=== PATIENT | male | born 1960 | race Caucasian/White ===

== ENCOUNTER 2019-04-07 10:48 | Day surgery (SDC) | payer BC ==
[2019-04-07] VITALS (7 sets, daily range): BP systolic 97–122; BP diastolic 64–80
[~2019-04-07] VITALS: Ht 175.3 cm; Wt 66.8 kg
[~2019-04-07 10:48] MED LIST: IBUP-2417 PO; cefazolin/dext.iso 2gm/100ml 100 ML IV ONE; famotidine 10mg tablet PO ONE; ringers solution, lacted 1,000 ML IV SCH
[2019-04-07] MEDS ORDERED: midazolam 2 mg/2 ml injection ONE (11:04)
[2019-04-07] MEDS ORDERED: BUPIVAcaine/PF 2.5 mg/ml (0.25%) 30ml vial ONE (11:05)
[2019-04-07] MEDS ORDERED: cloNIDine hcl/PF 100mcg/ml inj ONE (11:09)
[2019-04-07] MEDS ORDERED: ringers solution, lacted 1,000 ML IV SCH ×2 (11:23→12:41)
[2019-04-07] MEDS ORDERED: morphine 4 MG/ML inj SYRINge IV PRN ×4 (11:25→12:45)
[2019-04-07] MEDS ORDERED: proCHLORperazine 10 MG/2 ml inj IV PRN ×2 (11:25→12:45)
[2019-04-07] MEDS ORDERED: meperidine/PF 25mg/ml syringe IV PRN ×6 (11:25→12:45)
[2019-04-07] MEDS ORDERED: ondansetron/PF 4mg/2ml inj IV PRN ×2 (11:25→12:45)
[2019-04-07] MEDS ORDERED: sevoflurane 250ml liquid IH ONE (11:52)
[2019-04-07 12:07] LABS: BASOPHILS % (AUTO) 0.7 % (0-1); EOSINOPHILS # (AUTO) 0.1 X10'3 (0-0.9); EOSINOPHILS % (AUTO) 0.9 % (0-6); LYMPHOCYTES # (AUTO) 1.6 X10'3 (1.1-4.8); LYMPHOCYTES % (AUTO) 24.3 % (21-51); MEAN CORPUSCULAR HEMOGLOBIN 30.5 PG (27.0-31.0); MEAN CORPUSCULAR HGB CONC 34.1 g/dL (33.0-36.5); MEAN CORPUSCULAR VOLUME 89.5 FL (78-98); MEAN PLATELET VOLUME 8.2 FL (7.4-10.4); MONOCYTES # (AUTO) 0.6 X10'3 (0-0.9); MONOCYTES % (AUTO) 8.3 % (2-12); NEUTROPHILS # (AUTO) 4.5 X10'3 (1.8-7.7); NEUTROPHILS % (AUTO) 65.8 % (42-75); PRE OP HEMATOCRIT 44.6 % (42.0-52.0); PRE OP HEMOGLOBIN 15.2 g/dL (14.0-17.9); PRE OP PLATELET COUNT 282 X10'3 (140-440); RED BLOOD COUNT 4.98 X10'6 (4.70-6.10); RED CELL DISTRIBUTION WIDTH 13.3 % (11.5-14.5)
[2019-04-07 12:14] LABS: ALBUMIN 3.7 G/DL (3.4-5.0); ALBUMIN/GLOBULIN RATIO 1.2 (1.1-1.5); ALKALINE PHOSPHATASE 71 IU/L (46-116); BLOOD UREA NITROGEN 20 MG/DL (7-18); BUN/CREATININE RATIO 24.7 (5.4-32.0); CALCIUM 8.8 MG/DL (8.5-10.1); CHLORIDE 108 MMOL/L (99-107); CREATININE 0.81 MG/DL (0.60-1.10); PRE OP ALT 28 U/L (30-65); PRE OP ANION GAP 5 (8-16); PRE OP AST 16 U/L (10-37); PRE OP BILIRUB, TOTAL 0.6 MG/DL (0.0-1.0); PRE OP GLUCOSE 84 MG/DL (70-104); PRE OP POTASSIUM 3.8 MMOL/L (3.4-5.1); PRE OP SODIUM 142 MMOL/L (135-145); TOTAL PROTEIN 6.7 G/DL (6.4-8.2); eGFR > 90 ML/MIN
[2019-04-07] MEDS ORDERED: fentaNYL/PF 50MCG/1 ML 2ML syringe ONE (12:22)
[2019-04-07] MEDS ORDERED: propofol inj 20 ML IV ONE (12:23)
[2019-04-07] MEDS ORDERED: ondansetron/PF 4mg/2ml inj ONE (12:23)
[2019-04-07] MEDS ORDERED: LIDOcaine 2% (20mg/ml) 5ml vial ONE (12:23)
[2019-04-07] MEDS ORDERED: dexamethasone sod phosphate 4mg/ml inj. ONE (12:23)
[2019-04-07] MEDS ORDERED: ketorolac trometh. 30mg/ml inj. ONE (12:23)
[2019-04-07] MEDS ORDERED: ROPIVAcaine 0.5% (5mg/ml) 30ml vial ONE (12:23)
[2019-04-07] MEDS ORDERED: acetaminophen 1,000mg/100ml IV 100 ML IV PRN (12:45)
--- NOTE | 2019-04-07 13:25 | NUR ---
Received from OR via [facility], accompanied by Anesthesiologist DIRK and report given by Anesthesiolgist. PATIENT WITH LEFT WRIST SPLINT PRESENT. NO DRAINGE PRESENT- ELEVATED. CDI + CAP REFILL AND FINGERS ARE PWD. 10L MASK WITH 100% SATURATIONS. 20G PIV IN RIGHT UE RUNNING LR AT 100. VSS Addendum: 04/07/19 at 1336 by Jay Meza RN, RN Amended: Links added.
--- NOTE | 2019-04-07 14:15 | NUR ---
ALL DC CRITERIA HAS BEEN MET. IV TAKEN OUT WITHOUT COMPLICATIONS. ALL INSTRUCTIONS COVERED AND ALL QUESTIONS ANSWERED. DRESSINGS CDI. OUT VIA WHEELCHAIR TO PERSONAL VEHICLE WHERE PATIENT WAS SECURED IN AND DRIVEN HOME BY FAMILY. PRESENT TO TAKE PATIENT HOME. ALL DC INSTRUCTIONS COVERED. Addendum: 04/07/19 at 1432 by Jay Meza RN, RN Amended: Links added.
== END 2019-04-07 14:15 | disposition home or self-care (01) ==
LOC: PAS 10:48
PROVIDERS: ATTEND Orthopaedic Surgery Hand Surgery
DX: M19.032 Primary osteoarthritis, left wrist (principal); E78.00 Pure hypercholesterolemia, unspecified; G89.18 Other acute postprocedural pain; Z98.890 Other specified postprocedural states; Z79.899 Other long term (current) drug therapy
CPT/HCPCS: 25820; 36415; 64417; 80053; 85025; A6402; C1713; J0735; J1100; J1885; J2001; J2250; J2405; J2704; J3010; J3490; J7120; A4215; A4618; A6449; A7000; J2795

== ENCOUNTER 2021-09-26 05:37 | Day surgery (SDC) | payer BC ==
[2021-09-16 16:01] LABS: BASOPHILS # (AUTO) 0.1 X10'3 (0-0.2); BASOPHILS % (AUTO) 0.9 % (0-1); EOSINOPHILS # (AUTO) 0.1 X10'3 (0-0.9); LYMPHOCYTES # (AUTO) 1.3 X10'3 (1.1-4.8); LYMPHOCYTES % (AUTO) 17.1 % (21-51); MEAN CORPUSCULAR HEMOGLOBIN 28.9 PG (27.0-31.0); MEAN CORPUSCULAR HGB CONC 32.7 g/dL (33.0-36.5); MEAN CORPUSCULAR VOLUME 88.2 FL (78-98); MEAN PLATELET VOLUME 7.1 FL (7.4-10.4); MONOCYTES # (AUTO) 0.6 X10'3 (0-0.9); MONOCYTES % (AUTO) 8.4 % (2-12); NEUTROPHILS # (AUTO) 5.5 X10'3 (1.8-7.7); NEUTROPHILS % (AUTO) 72.6 % (42-75); PRE OP HEMATOCRIT 39.1 % (42.0-52.0); PRE OP HEMOGLOBIN 12.8 g/dL (14.0-17.9); PRE OP PLATELET COUNT 335 X10'3 (140-440); RED BLOOD COUNT 4.44 X10'6 (4.70-6.10); RED CELL DISTRIBUTION WIDTH 13.9 % (11.5-14.5)
[2021-09-16 16:16] LABS: ALBUMIN 3.4 G/DL (3.4-5.0); ALBUMIN/GLOBULIN RATIO 0.9 (1.1-1.5); ALKALINE PHOSPHATASE 92 IU/L (46-116); BLOOD UREA NITROGEN 20 MG/DL (7-18); CALCIUM 9.1 MG/DL (8.5-10.1); CHLORIDE 106 MMOL/L (99-107); CREATININE 0.77 MG/DL (0.60-1.10); PRE OP ALT 20 U/L (30-65); PRE OP ANION GAP 6 (8-16); PRE OP AST 14 U/L (10-37); PRE OP BILIRUB, TOTAL 0.2 MG/DL (0.0-1.0); PRE OP GLUCOSE 91 MG/DL (70-104); PRE OP SODIUM 141 MMOL/L (135-145); TOTAL CARBON DIOXIDE 28.6 MMOL/L (24-32); TOTAL PROTEIN 7.2 G/DL (6.4-8.2); eGFR > 90 ML/MIN
[2021-09-26] VITALS (8 sets, daily range): BP systolic 106–133; BP diastolic 66–82
[~2021-09-26] VITALS: Ht 175.3 cm; Wt 65.8 kg
[~2021-09-26 05:37] MED LIST changes: +acetaminophen 325mg tablet PO ONE; +ceFAZolin inj. 2,000 MG in dextrose 5%-water 100 ML IV ONE; -cefazolin/dext.iso 2gm/100ml 100 ML IV ONE; +celeCOXIB 100mg capsule PO ONE; -famotidine 10mg tablet PO ONE; +famotidine 20mg tablet PO ONE; +gabapentin 300mg capsule PO ONE; +metoclopramide 5 mg/ml inj IV ONE; +oxyCODONE SR 10mg (sust. release) tab -2 tabs (20mg) PO ONE; +tranexamic acid inj. 1,000 MG in 0.7% saline 100 ML PMX IV ONE; +vancomycin/NS 1 GM in NS 250 ML IV ONE
--- NOTE | 2021-09-26 06:30 | NUR ---
PT IS ONLY HERE FOR MANIPULATION, PER DR. REFUGIO BERMAN AND ORAL MEDS UNNECESSARY, HELD PER DR. VALENZUELA.
[2021-09-26] MEDS ORDERED: BUPIVAcaine/PF 2.5mg/ml (0.25%) 10ml vial ONE (06:41)
[2021-09-26] MEDS ORDERED: triamcinolone acetonide 40mg/ml inj ONE (06:42)
[2021-09-26] MEDS ORDERED: epiNEPHrine 1 mg/ml inj ONE (06:57)
[2021-09-26] MEDS ORDERED: ROPIVAcaine 0.5% (5mg/ml) 30ml vial ONE (07:00)
[2021-09-26] MEDS ORDERED: cloNIDine hcl/PF 100mcg/ml inj ONE (07:00)
[2021-09-26] MEDS ORDERED: sevoflurane 250ml liquid IH ONE (07:01)
[2021-09-26] MEDS ORDERED: fentaNYL/PF 50MCG/1 ML 2ML syringe ONE (07:02)
[2021-09-26] MEDS ORDERED: midazolam 1 mg/ML 2ml injection ONE (07:02)
[2021-09-26] MEDS ORDERED: morphine 4 MG/ML inj SYRINge IV PRN (07:10)
[2021-09-26] MEDS ORDERED: ringers solution, lacted 1,000 ML IV SCH (07:10)
[2021-09-26] MEDS ORDERED: proCHLORperazine 10 MG/2 ml inj IV PRN (07:10)
[2021-09-26] MEDS ORDERED: meperidine/PF 25mg/ml syringe IV PRN ×3 (07:10)
[2021-09-26] MEDS ORDERED: morphine 2 MG/ML inj. syringe IV PRN (07:10)
[2021-09-26] MEDS ORDERED: ondansetron/PF 4mg/2ml inj IV PRN (07:10)
[2021-09-26] MEDS ORDERED: propofol inj 20 ML IV ONE (07:26)
--- NOTE | 2021-09-26 07:30 | NUR ---
PT ARRIVED TO VIA GURNEY ACCOMPANIED BY DR GONZALEZ-ANESTHESIA REPORT GIVEN, PT STILL SLEEPY, VSS, PIV 20G TO LEFT FA-LR RUNNING, NO INCISION OR DRSG-+ PEDAL PULSE TO LEFT LE.
--- NOTE | 2021-09-26 08:40 | NUR ---
PT AWAKE, VSS, + PULSE TO BLE, ABLE TO GET SELF DRESSED, PIV-D/CD CANULA INTACT, SOME PAIN 5/10- BUT PT TO TAKE PRESCRIBED PAIN MEDS FROM HOME ONCE IN VEHICLE, ENCOURAGED TO MOVE KNEE MUCH POSSIBLE AND STAY ON TOP OF PAIN TO ASSIST WITH MOVEMENT-PER DR. HAMMOND, D/C INSTRUCTIONS GIVEN TO PT AND ALL QUESTIONS ANSWERED, PT TAKEN VIA W/C TO CAR FOR TRANSPORT HOME.
== END 2021-09-26 08:40 | disposition home or self-care (01) ==
LOC: PAS 05:37
PROVIDERS: ATTEND Orthopaedic Surgery
DX: M24.662 Ankylosis, left knee (principal); T84.82XA Fibrosis due to internal orthopedic prosthetic devices, implants and grafts, initial encounter; Z79.899 Other long term (current) drug therapy; G89.18 Other acute postprocedural pain; Z98.890 Other specified postprocedural states; M19.90 Unspecified osteoarthritis, unspecified site; Y83.8 Other surgical procedures as the cause of abnormal reaction of the patient, or of later complication, without mention of misadventure at the time of the procedure; M19.032 Primary osteoarthritis, left wrist; M19.031 Primary osteoarthritis, right wrist; M17.12 Unilateral primary osteoarthritis, left knee
CPT/HCPCS: 27570; 36415; 64447; 76942; 80053; 82948; 85025; J0690; J0735; J2175; J2250; J2704; J2795; J3010; J3301; J3370; J3490; J7060; J7120; Z7506; Z7512; A4618; J0171